=== PATIENT | female | born 1950 | race Two or more races ===

== ENCOUNTER 2024-02-07 11:03 | Outpatient (AMB) | payer MEDICARE, MEDICAID, SELFPAY ==
--- NOTE | 2024-02-07 11:01 | PD.ORTHTELE ---
Med/Allergies Allergies & Medications Allergies No Known Allergies Allergy (Verified 02/07/24 11:01) Medication Reconciliation Aspirin (Adult Low Strength Aspir) 81 tab PO QDAY PRN Heart ##30 11/14/13 [History Confirmed 02/07/24] naproxen 500 mg tablet 500 tab PO QDAY Arthritis ##60 11/14/13 [History Confirmed 02/07/24] amlodipine 5 mg tablet 5 mg PO QDAY 01/19/24 [History Confirmed 02/07/24] hydrochlorothiazide 50 mg tablet 50 mg PO QDAY 01/19/24 [History Confirmed 02/07/24] losartan 50 mg tablet 50 mg PO QDAY 01/19/24 [History Confirmed 02/07/24] Subjective Visit Visit for: follow up visit and x-rays Immunization / Flu Flu Vaccine in the Last 12 Months: No Flu Vaccine Exclusion Criteria: No Exclusion Criteria History of Present Illness Chief complaint: LEFT KNEE PAIN Date of injury / onset of symptoms: 15 YRS Date of 1st surgery (if applicable): 08/[address] ASHBY Patient is a pleasant 73-year-old female who presents today for evaluation of her left knee. She had a right total knee replacement a year ago in September. She reports the right knee has improved significantly. She has significant left knee pain. She has had multiple injections in [place]. She is also taking naproxen currently. She reports the pain is affecting her quality life and she is looking forward to getting surgery. She has also tried PT. Knee x-rays were personally reviewed by me today. She has a [employer] right total knee replacement this is in alignment position. The left knee demonstrates complete obliteration of the medial joint space with varus deformity and osteophytes. Personal History Occupation: RETIRED Red flag PMH: none Pain Pain level (0-10): 7 Pain duration: ALL DAY Pain location: inside (medial) Pain quality: sharp and aching Pain timing: increases with activity Associated signs & symptoms: none Ambulatory data Ambulatory device: none Treatments Improvement with previous injections: No Improvement with PT: No Improvement with NSAIDS: no Review of Systems Review of Systems: All systems negative unless otherwise noted in HPI. Assessment and Plan Problem List (1) Arthritis of left knee: Status: Acute Plan: Patient is a pleasant 73-year-old female who is failed conservative treatment. She has had multiple injections and has tried anti-inflammatories with minimal relief. She is also tried physical therapy. We thus discussed total knee replacement as a reasonable option. We discussed the risk and benefits of surgery in great detail today and she would like to proceed with surgery. The nature and purpose of the total knee replacement, alternative method(s) of treatment, the material risks involved, and the possibility of complications were fully explained to the patient. The patient does NOT have any of the following contraindications to TKA: - Active infection of the knee joint, OR - Active systemic bacteremia, OR - Active skin infection or open wound at surgical site, OR - Neuropathic arthritis, OR - Severe, rapidly progressive neurological disease, OR - Severe medical condition that makes risks of surgery outweigh the potential benefit The patient was told the most common risks and complications associated with a total knee replacement include, but are not limited to: blood clots in the leg, fatal pulmonary embolism, dislocation of the prosthesis, intraoperative and postoperative fractures of the femur or tibia, infection, failure of the prosthesis or grafting materials, complications from anesthesia, reactions to blood transfusions, postoperative leg length inequality, instability of the knee replacement, nerve damage or injury, vascular injury, delayed wound healing, infection, other injury or even . In addition, there are risks associated with anesthesia given during this operation. Also, the patient was told that after undergoing a total knee replacement there may still be persistent pain or disability. The patient was informed that the success of this operation in part depends upon the mechanical devices which are going to be implanted and that these devices can fail or malfunction, and may need to be repaired or replaced and there are no guarantees as to the longevity of this device or its parts and that it or its parts could fail prematurely. The patient was also notified that during the course of surgery, there may be a need to use bone graft from donors, and that any bone graft used will be carefully screened for communicable diseases, including AIDS, hepatitis, Chuy-Creutzfeldt, or other diseases, but despite the screening procedures, there is a small chance that they could contract one of these diseases. Finally, the patient was asked to follow completely and fully with all advice and recommended treatments, and that recovery and ultimate outcome are affected by their compliance with recommended treatment. We discussed the risks, benefits and treatment alternatives, and the patient is interested in proceeding with surgery. We will try to set this up as expeditiously as possible. Advanced Care Planning Discussion Advance care planning discussed with:: patient Office Procedures GNS Level of Care Nursing/Assessment Patient Status: Established Patient Nursing Assessment/Reassesment: Medication Reconciliation, Update PMH in EMR and Vital Signs Coordination of Care: Complex Care and Chronic Disease 1-5, Education Complex Pt/Fam, Consent,records obtained, informed consent, 1 Ins Authorization, Results/Orders obtained and Staff clarify orders Special Needs: Language special needs Established Patient Charge Established Patient Point Assignment: 110 Telehealth Telemed Phone/Video with patient at home & Dr,PA,NAVIGATION OFFICER: Yes
== END 2024-02-07 11:09 | disposition home or self-care (01) ==
LOC: HODSRG 11:03
PROVIDERS: PCP Physician Assistant; Referring Provider Physician Assistant; Supervising Provider Orthopaedic Surgery Adult Reconstructive Orthopaedic Surgery; Visit Provider Orthopaedic Surgery Adult Reconstructive Orthopaedic Surgery
DX: M17.12 Unilateral primary osteoarthritis, left knee (principal); Z96.651 Presence of right artificial knee joint
CPT/HCPCS: 99212; G0463

== ENCOUNTER 2024-03-22 10:28 | Outpatient (AMB) | payer MEDICARE, MEDICAID, SELFPAY ==
--- NOTE | 2024-03-22 11:11 | RHCORTHONT_ITS ---
Vital signs 03/22/24 11:12 Height 1.57 m Height Method Stated Weight 89.443 kg Weight Measurement Method Standing Scale BMI 36.3 BP 178/92 H Blood Pressure Source Automatic Cuff Blood Pressure Location Left Upper Arm Position Sitting Respiration 19 Pulse 69 Pulse Source Monitor Temp 97.6 F Temp Source Temporal Artery Scan Pulse Oximetry (%) 95 Oxygen Delivery Method Room Air Med/Allergies Allergies & Medications Allergies No Known Allergies Allergy (Verified 03/22/24 11:13) Medication Reconciliation Aspirin (Adult Low Strength Aspir) 81 tab PO QDAY PRN Heart ##30 11/14/13 [History Confirmed 03/22/24] naproxen 500 mg tablet 500 tab PO QDAY Arthritis ##60 11/14/13 [History Confirmed 03/22/24] amlodipine 5 mg tablet 5 mg PO QDAY 01/19/24 [History Confirmed 03/22/24] hydrochlorothiazide 50 mg tablet 50 mg PO QDAY 01/19/24 [History Confirmed 03/22/24] losartan 50 mg tablet 50 mg PO QDAY 01/19/24 [History Confirmed 03/22/24] Exam Exam Patient is in no acute distress and is cooperative with the examination today. Breathing is nonlabored. Patient has a normal mood and affect. Bilateral extremities were evaluated and demonstrates sensation intact to light touch. Palpable pedal pulses are present. No significant edema is present. Bilateral hips were examined. The patient has no pain with log roll of the hips. Internal rotation to 30 degrees and external rotation to 30 degrees is painless. Negative FADIR. Right knee was examined today. The right knee is in reasonable alignment. Range of motion from 0-120 degrees. Knee is stable to varus and valgus as well as AP translation with <5mm. Patient has a negative McMurrays. There is no pain with patellofemoral compression and no crepitus noted. The knee is nontender to palpation. Right knee incision is clean dry and intact Left knee was examined today. The left knee is in [varus] alignment. Range of motion from [0-115] degrees. Knee is stable to varus and valgus as well as AP translation with <5mm. Patient has a [negative] McMurrays. There is [no] pain with patellofemoral compression and [no] crepitus noted. The knee is [tender] to palpation [medially]. Bilateral knee x-rays demonstrate significant left knee arthritis and a right total knee replacement. Assessment and Plan Problem List (1) Arthritis of left knee: Status: Acute Plan: Patient is a pleasant 73-year-old female who is failed conservative treatment. She has had multiple injections and has tried anti-inflammatories with minimal relief. She is also tried physical therapy. We thus discussed total knee replacement as a reasonable option. We discussed the risk and benefits of surgery in great detail today and she would like to proceed with surgery. The nature and purpose of the total knee replacement, alternative method(s) of treatment, the material risks involved, and the possibility of complications were fully explained to the patient. The patient does NOT have any of the following contraindications to TKA: - Active infection of the knee joint, OR - Active systemic bacteremia, OR - Active skin infection or open wound at surgical site, OR - Neuropathic arthritis, OR - Severe, rapidly progressive neurological disease, OR - Severe medical condition that makes risks of surgery outweigh the potential benefit The patient was told the most common risks and complications associated with a total knee replacement include, but are not limited to: blood clots in the leg, fatal pulmonary embolism, dislocation of the prosthesis, intraoperative and postoperative fractures of the femur or tibia, infection, failure of the prosthesis or grafting materials, complications from anesthesia, reactions to blood transfusions, postoperative leg length inequality, instability of the knee replacement, nerve damage or injury, vascular injury, delayed wound healing, infection, other injury or even . In addition, there are risks associated with anesthesia given during this operation. Also, the patient was told that af ter undergoing a total knee replacement there may still be persistent pain or disability. The patient was informed that the success of this operation in part depends upon the mechanical devices which are going to be implanted and that these devices can fail or malfunction, and may need to be repaired or replaced and there are no guarantees as to the longevity of this device or its parts and that it or its parts could fail prematurely. The patient was also notified that during the course of surgery, there may be a need to use bone graft from donors, and that any bone graft used will be carefully screened for communicable diseases, including AIDS, hepatitis, Chuy-Creutzfeldt, or other diseases, but despite the screening procedures, there is a small chance that they could contract one of these diseases. Finally, the patient was asked to follow completely and fully with all advice and recommended treatments, and that recovery and ultimate outcome are affected by their compliance with recommended treatment. We discussed the risks, benefits and treatment alternatives, and the patient is interested in proceeding with surgery. We will try to set this up as expeditiously as possible. Advanced Care Planning Discussion Advance care planning discussed with:: patient Office Procedures GNS Level of Care Nursing/Assessment Patient Status: Established Patient Nursing Assessment/Reassesment: Medication Reconciliation, Update PMH in EMR and Vital Signs Coordination of Care: Complex Care and Chronic Disease 1-5, Education Complex Pt/Fam, Consent,records obtained, informed consent, 1 Ins Authorization, Results/Orders obtained and Staff clarify orders Special Needs: Language special needs Established Patient Charge Established Patient Point Assignment: 110 Established Patient Point Charge: EP Level 3 (80-115) MA Intake Visit Data Collection New Patient or Established: Established Patient (seen at [facility] within 3 years) Reason for Visit:: PRE OP L TKA Seen by Clinical Staff ONLY (RN/MA): No Boat Hoist Operator Required: Yes PCP or OBGYN visit in last 3 months: Yes Hx Now: No Do You Feel Safe at Home: Yes Authorities Contacted: N/A Questionairres Past Medical History Past Medical History Have you ever been diagnosed with any of the following: Cardiology Problems Hypertension: Yes Respiratory Problems Smoking: No Smoking Exposure: No Subjective Visit Visit for: follow up visit and knee (LEFT) Immunization / Flu Flu Vaccine in the Last 12 Months: No Flu Vaccine Exclusion Criteria: No Exclusion Criteria History of Present Illness Chief complaint: Bilateral knee pain worse on the left Jessica is here for her preop visit. She is scheduled for a total knee replacement in 2 weeks. We answered all her questions today Pain Pain level (0-10): 8 Pain duration: ON AND OFF Pain location: inside (medial), outside (lateral), anterior and posterior Pain quality: sharp, dull and aching Pain timing: night, increases with activity and stairs Associated signs & symptoms: weakness Ambulatory data Ambulatory device: cane Treatments Improvement with previous injections: No Improvement with PT: No Improvement with NSAIDS: no Review of Systems Review of Systems: All systems negative unless otherwise noted in HPI.
[2024-03-22 11:12] VITALS: BP 178/92; PULSE 69; RESP 19; TEMP 36.4; O2SAT 95; BMI 36.3
== END 2024-03-22 11:33 | disposition home or self-care (01) ==
LOC: HODSRG 10:28
PROVIDERS: PCP Physician Assistant; Referring Provider Physician Assistant; Supervising Provider Orthopaedic Surgery Adult Reconstructive Orthopaedic Surgery; Visit Provider Orthopaedic Surgery Adult Reconstructive Orthopaedic Surgery
DX: M17.12 Unilateral primary osteoarthritis, left knee (principal)
CPT/HCPCS: 99213; G0463

== ENCOUNTER → 2024-03-22 | Outpatient (CLI) | payer MEDICARE, MEDICAID, SELFPAY ==
--- NOTE | 2024-03-22 12:00 | XR_ITS ---
Examination: CT left lower extremity, without contrast. 2-D sagittal reconstructions. 2-D coronal reconstructions. 3-D reconstructions. Date and time of exam:March 22, 2024 1111 hours INDICATIONS: Left knee pain 15 years CTDI: vol (mGy):13.5 DLP: (mGycm):972 Technique: Multiple 1.25 mm axial sections of the left lower extremity without intravenous contrast have been obtained. 2-D sagittal and coronal reconstructions have been obtained. 3-D reconstructions have been obtained. Low dose protocols were performed. One or more of the following dose reduction techniques were used; automated exposure control, adjustment of the mA and/or KV according to patient size, use of iterative reconstruction technique. Findings: Moderate osteopenia Mild narrowing left hip joint No left hip fracture or dislocation Moderate to advanced left knee tricompartment osteoarthritis, most severe narrowing involving the medial joint space with subarticular sclerosis and osteophyte formation No fracture No patellar dislocation IMPRESSION: Moderate to advanced left knee tricompartment osteoarthritis, most severe medial joint space
== END | disposition home or self-care (01) ==
LOC: SCAT 12:08 → CCTX 12:43
PROVIDERS: PCP Family Medicine; Referring Provider Orthopaedic Surgery Adult Reconstructive Orthopaedic Surgery; Visit Provider Orthopaedic Surgery Adult Reconstructive Orthopaedic Surgery
DX: M17.12 Unilateral primary osteoarthritis, left knee (principal)
CPT/HCPCS: 73700

== ENCOUNTER 2024-04-11 05:45 | Day surgery (SDC) | payer MEDICARE, MEDICAID, SELFPAY ==
[2024-04-09 09:14] VITALS: BMI 38.2
[2024-04-09 09:19] VITALS: BMI 38.2
--- NOTE | 2024-04-09 09:29 | EKG_ITS ---
[facility] Test Date: 2024-04-09 Pat Name: TONI ALCAZAR Department: Room: - Gender: Female Strategic Advisor: RTSJC : 1950 Requested By: Jordan Reyes Order Number: [id number] Reading MD: Jordan Reyes Measurements Intervals [place] Rate: 65 P: 62 TN: 154 QRS: -36 QRSD: 92 T: 60 QT: 409 QTc: 425 Interpretive Statements SINUS RHYTHM MARKED LEFT AXIS DEVIATION SEPTAL MYOCARDIAL INFARCTION , OF INDETERMINATE AGE No previous ECG available for comparison /[id number]/[email or web address]/[id number]
[2024-04-09 11:32] LABS: Basophils % (Auto) 0 % (0-2.5); Eosinophils # (Auto) 0.2 Thou/mm3 (0.0-0.5); Eosinophils % (Auto) 2 % (0-10); Hematocrit 45.2 % (36.0-46.0); Hemoglobin 14.5 g/dL (12.0-16.0); Immature Granulocytes % (Auto) 0 % (0-0); Immature Granulocytes Auto 0.02 Thou/mm3 (0.00-0.00); Lymphocytes % (Auto) 26 % (10-50); Mean Corpuscular HGB Conc 32.1 g/dl (31.0-37.0); Mean Corpuscular Hemoglobin 29.5 pg (25.0-35.0); Mean Corpuscular Volume 92 fL (80-100); Monocytes # (Auto) 0.6 Thou/mm3 (0.0-0.8); Monocytes % (Auto) 8 % (0-12); Neutrophils % (Auto) 63 % (37-80); Nucleated Red Blood Cell % 0 /100 WBC (0); Platelet Count 217 Thou/mm3 (140-440); RDW Standard Deviation 44.2 fL (36.4-46.3); Red Blood Count 4.91 Miln/mm3 (4.00-5.20); White Blood Count 7.9 Thou/mm3 (3.6-11.0)
[2024-04-09 11:47] LABS: Partial Thromboplastin Time 27.6 Seconds (22.0-36.0); Prothrombin Time 10.9 Seconds (9.0-12.2)
[2024-04-09 11:52] LABS: Alanine Aminotransferase 23 U/L (10-49); Albumin, Serum 4.7 gm/dL (3.4-4.8); Albumin/Globulin Ratio 1.7 (1.2-2.2); Alkaline Phosphatase 119 U/L (46-116); Anion Gap 10 (7-16); Aspartate Amino Transferase 26 U/L (0-34); BUN/Creatinine Ratio 22 Ratio (12-20); Bilirubin,Total 0.5 mg/dL (0.3-1.2); Blood Urea Nitrogen 26 mg/dL (9-23); Calcium 9.9 mg/dL (8.3-10.6); Calcium (Corrected) 9.9 mg/dL (8.5-10.1); Carbon Dioxide 28.9 mMol/L (20.0-31.0); Chloride 105 mMol/L (98-107); Creatinine (Component) 1.2 mg/dL (0.6-1.3); Estimated Creatinine Clearance 42.7 mL/min (>60); Globulin 2.7 gm/dL (2.3-3.5); Glucose 105 mg/dL (74-106); Osmolality,Calculated 291 (275-295); Potassium 3.6 mMol/L (3.4-5.1); Sodium 144 mMol/L (136-145); Total Protein 7.4 gm/dL (5.7-8.2); eGFR 48 See Note
[2024-04-11] VITALS (10 sets, daily range): BP systolic 107–129; BP diastolic 64–86; PULSE 66–87; RESP 12–19; TEMP 36.3–36.4; O2SAT 95–100; BMI 38.7; BMI 13.0
[2024-04-11] MEDS: ACETAMINOPHEN 325 MG TABLET 650 MG PO (06:25)
[2024-04-11] MEDS: PREGABALIN 75 MG CAPSULE PO (06:25)
[2024-04-11] MEDS: MELOXICAM 7.5 MG TABLET PO (06:25)
[2024-04-11] MEDS: RINGERS LACTATED 1000 ML 1,000 ML 20 ML IV (06:26)
--- NOTE | 2024-04-11 09:26 | SUR.PHASEI ---
pt received from OR in recovery bay 1. pt awake and alert, breathing unlabored on room air. v/s stable. pt dressing to left lower extremity cdi. report received from Dr. Reyes and Sofie PUENTE.
--- NOTE | 2024-04-11 09:38 | ESOP_ITS ---
Date of Procedure 04/11/24 Pre Op Diagnosis left knee osteoarthritis Post Op Diagnosis left knee osteoarthritis Procedure left total knee replacement robotic assisted Findings full thickness cartilage loss and ostoephytes Procedure Description Indication: The patient is a 74 year old who has a long history of left knee pain. X-rays show degenerative arthritis involving the knee. Over the past several years the patient has had increasing pain, progressive limitation in function. He has failed conservative measures including activity modification, physical therapy, injections, anti-inflammatories, and assistive devices. After a lengthy discussion of the risks and benefits, the patient presents now for total knee replacement. The nature and purpose of the total knee replacement, alternative method(s) of treatment, the material risks involved, and the possibility of complications were fully explained to the patient. The patient was told the most common risks and complications associated with a total knee replacement include, but are not limited to blood clots in the leg, fatal pulmonary embolism, dislocation of the prosthesis, intraoperative and postoperative fractures of the femur or tibia, infection, failure of the prosthesis or grafting materials, complications from anesthesia, reactions to blood transfusions, postoperative leg length inequality, instability of the knee replacement, nerve damage or injury, vascular injury, delayed wound healing, infections, other injury or even . In addition, there are risks associated with anesthesia given during this operation, temporary or permanent numbness on the skin lateral to the incision can be a complication unique to total knee surgery, and kneeling can be painful after knee replacement surgery. Also, the patient was told that after undergoing a total knee replacement there may still be pain or disability. We discussed with the patient that we will be using a robot-assisted technology. We discussed that there is a possibility of converting to manual instrumentation. The patient was informed that the success of this operation in part depends upon the mechanical devices which are going to be implanted and that these devices can fail or malfunction, and may need to be repaired or replaced and there are no guarantees as to the longevity of this device or its part and that it or its parts could fail prematurely. Finally, the patient was asked to follow completely and fully with all advice and recommended treatments, and that recovery and ultimate outcome are affected by their compliance with recommended treatment. Surgical technique: Patient was marked and consented in the pre-operative area. The patient was brought to the operating room and placed on the operating table in a supine position. Prior to positioning, a timeout procedure was performed between the surgeon, the anesthesiologist, and the nursing staff where the patient and the operative side were identified and confirmed. After adequate general anesthetic was obtained, the left lower extremity was prepped and draped in the usual sterile fashion. A weight based dose of Cefazolin were administered within 1 hour prior to incision. The robot was preregistered and calirated before the incision. The extremity was exsanguinated with an esmarch badge and tourniquet inflated to 250mmHg. A midline incision was made. A median parapatellar arthrotomy was made. The patella was subluxed laterally. A medial release was performed to expose the medial tibia. His femoral and tibial pins were placed through an intra incisional manner for both cases. Every effort was made to ensure that the distalmost aspect of the pin was hung in the second cortex. The arrays were then tightened several times to ensure that it was fixed for the remainder of the case. Both femoral and tibial checkpoints were then placed. We then went through the registration process of the bone. We then assessed the knee deformity and attempted to correct it. We also used the robot to aid in judging laxity in both extension and flexion. Final based on laxity and alignment we changed the preoperative assessment to obtain proper proper implant positioning and to correct deformity. Attention was then placed to the tibia. We made a tibial cut using the robot ensuring that both the MCL and the patella tendon were protected with retractors. We then went to the femur and made the posterior cut followed by the anterior cut and the anterior chamfer. The bone was then removed and we made a distal femur cut and a posterior chamfer cut. We verified all cuts. A trial reduction was performed with a size 4 femoral component and a size 3 keeled tibial component. The patella tracked centrally, and no lateral retinacular release was necessary. The trial implants were removed. The arrays, pins, and checkpoints were all removed. We performed a verification that all pins were removed. The cut bone surfaces were lavaged. A size 4 left femoral component, a size 3 keeled tibial component were impacted into position. The knee was felt to be well balanced in the sagittal and coronal plane. The final 3x10 mm cruciate- substituting articular insert was impacted into the tibial tray. The knee was brought out to full extension, flexed up to 120 degrees. It was stable to varus and valgus stress and appropriately balanced in flexion and extension. The wounds were copiously irrigated following deflation of tourniquet. The medial retinaculum was reapproximated with #1 vicryl and quill. The subcutaneous tissues were closed with 0 and 2-0 interrupted Vicryl. The skin was closed with 3-0 Monofilament V loc suture. A sterile dressing was applied. The patient was transferred to a bed and brought to recovery in stable condition. The patient tolerated the procedure well. There were no intraoperative complications. Sponge and needle counts were correct times 2. As the attending surgeon, Marika chi I was present and performed the entire operation. Grafts/Implants Size 4 CR Femur Size 3 Tibia 10mm poly CS Anesthesia spinal Implants travis Pathology / specimen None Pathology comment: none Estimated Blood Loss 150 Condition Stable Surgeon Kali Quintero MD Surgical Staff Operation Date: 04/11/24 07:30 Case Staff Anesthesiologist: Jordan Reyes RNtechnical sales support specialist: Huong Zayas
--- NOTE | 2024-04-11 09:43 | XR_ITS ---
Examination: Left knee 2 views Technique one AP lateral left knee 2 views Exam date and time: April 11, 2024 1044 hours INDICATIONS: Postop knee surgery today. FINDINGS: Prominent osteopenia Total left knee arthroplasty. Satisfactory alignment No fracture IMPRESSION: Total left knee arthroplasty with satisfactory alignment
--- NOTE | 2024-04-11 09:51 | SUR.PHASEI ---
pt able to tolerate oral fluids without difficulty swallowing or nausea/vomiting.
--- NOTE | 2024-04-11 11:25 | SUR.PHASEII ---
pt awake and alert, breathing unlabored on room air. v/s stable. pt dressing to left lower extremity cdi. pt cleared by physical therapist Bridget, pt able to ambulate to wheelchair with steady gait. d/c instructions given with and son in room using echocardiologist Bryn Rice62, all questions answered. pt d/c via wheelchair with all belongings.
--- NOTE | 2024-04-17 13:32 | ESPR_ITS ---
Documentation for date of: 04/17/24 POST ANESTHESIA NOTE: Patient had spinal anesthesia and L adductor block and MAC for L TKA on 04/11/24. I just called and spoke with her on the phone via dielectric embossing machine operator and she denied any problems from anesthesia. Jordan Reyes MD Anesthesia Progress Note Progress Note Most recent Vital Signs: Last Vital Signs Temp 97.4 F 04/11/24 10:55 Pulse 86 04/11/24 10:55 Resp 15 04/11/24 10:55 BP 128/78 04/11/24 10:55 Pulse Ox 95 04/11/24 10:55
== END 2024-04-11 11:25 | disposition home or self-care (01) ==
PROVIDERS: Anesthesiology; PCP Family Medicine; Referring Provider Orthopaedic Surgery Adult Reconstructive Orthopaedic Surgery; Visit Provider Orthopaedic Surgery Adult Reconstructive Orthopaedic Surgery
PROC: (CPT 27447; principal; 2024-04-11 07:30)
DX: M17.12 Unilateral primary osteoarthritis, left knee (principal); M25.762 Osteophyte, left knee; Z01.810 Encounter for preprocedural cardiovascular examination
CPT/HCPCS: 27447; 20985; 36415; 73560; 80053; 85025; 85610; 85730; 93005; 97162; A4217; C1713; C1776; J0171; J0690; J1100; J1885; J2250; J2371; J2704; J2795; J3010; J3490; J7030; J7120; P9045; A4648; A4649; A9270

== ENCOUNTER 2024-04-27 09:11 | Outpatient (AMB) | payer MEDICARE, MEDICAID, SELFPAY ==
--- NOTE | 2024-04-27 09:37 | PD.ORTHCLVIS ---
Vital signs 04/27/24 09:39 Height 1.52 m Height Method Stated Weight 88.961 kg Weight Measurement Method Standing Scale BMI 38.5 BP 149/82 H Blood Pressure Source Automatic Cuff Blood Pressure Location Left Upper Arm Position Sitting Respiration 18 Pulse 69 Pulse Source Monitor Temp 97.8 F Temp Source Temporal Artery Scan Pulse Oximetry (%) 96 Oxygen Delivery Method Room Air Med/Allergies Allergies & Medications Allergies No Known Allergies Allergy (Verified 04/27/24 09:40) Medication Reconciliation naproxen 500 mg tablet 500 tab PO Q12H PRN Arthritis ##60 11/14/13 [History Confirmed 04/27/24] amlodipine 5 mg tablet 5 mg PO QDAY 01/19/24 [History Confirmed 04/27/24] hydrochlorothiazide 50 mg tablet 50 mg PO QDAY 01/19/24 [History Confirmed 04/27/24] losartan 100 mg tablet 100 mg PO QDAY 04/09/24 [History Confirmed 04/27/24] lovastatin 20 mg tablet 20 mg PO QPM 04/09/24 [History Confirmed 04/27/24] acetaminophen 500 mg tablet (Acetaminophen Extra Strength) 1,000 mg (2 x 500 mg) PO Q6H PRN pain #90 tabs 04/11/24 [Rx Confirmed 04/27/24] aspirin 81 mg tablet,delayed release 81 mg PO BID #60 tabs 04/11/24 [Rx Confirmed 04/27/24] doxycycline hyclate 100 mg tablet 100 mg PO BID #14 tabs 04/11/24 [Rx Confirmed 04/27/24] gabapentin 300 mg capsule 300 mg PO .qhs #30 caps 04/11/24 [Rx Confirmed 04/27/24] oxycodone 5 mg tablet 5 mg PO Q6H PRN pain #28 tabs 04/11/24 [Rx Confirmed 04/27/24] sennosides 8.6 mg-docusate sodium 50 mg tablet (Senna-S) 1 tab-cap PO QDAY #30 tabs 04/11/24 [Rx Confirmed 04/27/24] acetaminophen 500 mg tablet (Acetaminophen Extra Strength) 1,000 mg (2 x 500 mg) PO Q6H PRN pain #90 tabs 04/26/24 [Rx Confirmed 04/27/24] oxycodone 5 mg tablet 5 mg PO Q6H PRN pain #28 tabs 04/26/24 [Rx Confirmed 04/27/24] Exam Exam Patient is in no acute distress and is cooperative with the examination today. Breathing is nonlabored. Patient has a normal mood and affect. Bilateral extremities were evaluated and demonstrates sensation intact to light touch. Palpable pedal pulses are present. No significant edema is present. Bilateral hips were examined. The patient has no pain with log roll of the hips. Internal rotation to 30 degrees and external rotation to 30 degrees is painless. Negative FADIR. Right knee incision is clean dry and intact Assessment and Plan Problem List (1) Arthritis of left knee: Status: Acute Plan: Patient is a pleasant 73-year-old female Status post right total knee replacement. She is doing well and has minimal pain We will see the patient back in approximately 4 weeks for routine follow-up Advanced Care Planning Discussion Advance care planning discussed with:: patient Office Procedures GNS Level of Care Nursing/Assessment Patient Status: Established Patient Nursing Assessment/Reassesment: Medication Reconciliation, Update PMH in EMR and Vital Signs Coordination of Care: Complex Care and Chronic Disease 1-5, Education Complex Pt/Fam, Consent,records obtained, informed consent, Results/Orders obtained and Staff clarify orders Special Needs: Language special needs Established Patient Charge Established Patient Point Assignment: 95 Established Patient Point Charge: EP Level 3 (80-115) MA Intake Visit Data Collection New Patient or Established: Established Patient (seen at [facility] within 3 years) Reason for Visit:: F/U POST TKA Seen by Clinical Staff ONLY (RN/MA): No City Dispatcher Required: No PCP or OBGYN visit in last 3 months: Yes Hx Now: No Do You Feel Safe at Home: Yes Authorities Contacted: N/A Questionairres Past Medical History Past Medical History Have you ever been diagnosed with any of the following: Neurological Problems Seizures: No Cardiology Problems Hypercholesterolemia: Yes Congestive Heart Failure: No Edema: Yes (knees down at times) Hypertension: Yes Varicose Veins: Yes Respiratory Problems Chronic Obstructive Pulmonary Disease (COPD): No Smoking: No Smoking Exposure: No Stomache/Intestinal Problems Obesity: Yes Genital/Urinary Problems Renal Disease: No Reproductive Problems Previous Pregnancies: Yes Musculoskeletal Problems Arthritis: Yes Endocrine Problems Diabetes Mellitus Type 1: No Diabetes Mellitus Type 2: No Other Problems Hospitalization: No Shingles: No Blood Transfusions: No Blood Transfusion Reaction: No Anesthesia Reactions: No Measles: Yes Cancer: No Subjective Visit Visit for: follow up visit and knee Immunization / Flu Flu Vaccine in the Last 12 Months: No Flu Vaccine Exclusion Criteria: No Exclusion Criteria History of Present Illness Chief complaint: right total knee replacement Patient is a 74-year-old female who is 2 weeks status post right total knee replacement. She is doing well. There is minimal pain Pain Pain level (0-10): 5 Pain duration: COMES AND GOES Pain location: anterior Pain quality: aching Pain timing: increases with activity Associated signs & symptoms: numbness Ambulatory data Ambulatory device: walker Treatments Improvement with previous injections: No Improvement with PT: No Improvement with NSAIDS: no Review of Systems Review of Systems: All systems negative unless otherwise noted in HPI.
[2024-04-27 09:39] VITALS: BP 149/82; PULSE 69; RESP 18; TEMP 36.6; O2SAT 96; BMI 38.5
== END 2024-04-27 09:42 | disposition home or self-care (01) ==
LOC: HODSRG 09:11
PROVIDERS: PCP Family Medicine; Referring Provider Family Medicine; Supervising Provider Orthopaedic Surgery Adult Reconstructive Orthopaedic Surgery; Visit Provider Orthopaedic Surgery Adult Reconstructive Orthopaedic Surgery
DX: M17.12 Unilateral primary osteoarthritis, left knee (principal); Z96.651 Presence of right artificial knee joint; I10 Essential (primary) hypertension; E78.00 Pure hypercholesterolemia, unspecified
CPT/HCPCS: 99213; G0463

== ENCOUNTER → 2024-05-24 | Outpatient (CLI) | payer MEDICARE, MEDICAID, SELFPAY ==
--- NOTE | 2024-05-24 15:08 | XR_ITS ---
Examination: Bilateral AP knees single view AP lateral axial left knee 3 views TECHNIQUE: Bilateral AP knees standing single view Standing AP lateral axial left knee 3 views total 4 views Exam date and time: May 24, 2024 1512 hours INDICATIONS: Knee pain months. FINDINGS: Moderate osteopenia Bilateral total knee arthroplasties Satisfactory alignment No loosening of the prosthetic components No left patellar dislocation IMPRESSION: Bilateral total knee arthroplasties with satisfactory alignment
== END | disposition home or self-care (01) ==
LOC: CDIM 14:49
PROVIDERS: Referring Provider Orthopaedic Surgery Adult Reconstructive Orthopaedic Surgery; Visit Provider Orthopaedic Surgery Adult Reconstructive Orthopaedic Surgery
DX: M25.569 Pain in unspecified knee (principal); Z96.653 Presence of artificial knee joint, bilateral
CPT/HCPCS: 73564

== ENCOUNTER 2024-05-29 10:03 | Outpatient (AMB) | payer MEDICARE, MEDICAID, SELFPAY ==
[2024-05-29 10:21] VITALS: BP 157/83; PULSE 59; RESP 19; TEMP 36.4; O2SAT 98; BMI 38.4
--- NOTE | 2024-05-29 10:21 | ORTHONT_ITS ---
Vital signs 05/29/24 10:21 Height 1.52 m Height Method Stated Weight 88.706 kg Weight Measurement Method Standing Scale BMI 38.4 BP 157/83 H Blood Pressure Source Automatic Cuff Blood Pressure Location Left Upper Arm Position Sitting Respiration 19 Pulse 59 L Pulse Source Monitor Temp 97.5 F Temp Source Temporal Artery Scan Pulse Oximetry (%) 98 Oxygen Delivery Method Room Air Med/Allergies Allergies & Medications Allergies No Known Allergies Allergy (Verified 05/29/24 10:22) Medication Reconciliation naproxen 500 mg tablet 500 tab PO Q12H PRN Arthritis ##60 11/14/13 [History Conf irmed 05/29/24] amlodipine 5 mg tablet 5 mg PO QDAY 01/19/24 [History Confirmed 05/29/24] hydrochlorothiazide 50 mg tablet 50 mg PO QDAY 01/19/24 [History Confirmed 05/29/24] losartan 100 mg tablet 100 mg PO QDAY 04/09/24 [History Confirmed 05/29/24] lovastatin 20 mg tablet 20 mg PO QPM 04/09/24 [History Confirmed 05/29/24] acetaminophen 500 mg tablet (Acetaminophen Extra Strength) 1,000 mg (2 x 500 mg) PO Q6H PRN pain #90 tabs 04/11/24 [Rx Confirmed 05/29/24] aspirin 81 mg tablet,delayed release 81 mg PO BID #60 tabs 04/11/24 [Rx Confirmed 05/29/24] doxycycline hyclate 100 mg tablet 100 mg PO BID #14 tabs 04/11/24 [Rx Confirmed 05/29/24] gabapentin 300 mg capsule 300 mg PO .qhs #30 caps 04/11/24 [Rx Confirmed 05/29/24] oxycodone 5 mg tablet 5 mg PO Q6H PRN pain #28 tabs 04/11/24 [Rx Confirmed 05/29/24] sennosides 8.6 mg-docusate sodium 50 mg tablet (Senna-S) 1 tab-cap PO QDAY #30 tabs 04/11/24 [Rx Confirmed 05/29/24] acetaminophen 500 mg tablet (Acetaminophen Extra Strength) 1,000 mg (2 x 500 mg) PO Q6H PRN pain #90 tabs 04/26/24 [Rx Confirmed 05/29/24] oxycodone 5 mg tablet 5 mg PO Q6H PRN pain #28 tabs 04/26/24 [Rx Confirmed 05/29/24] Exam Exam Patient is in no acute distress and is cooperative with the examination today. Breathing is nonlabored. Patient has a normal mood and affect. Bilateral extremities were evaluated and demonstrates sensation intact to light touch. Palpable pedal pulses are present. No significant edema is present. Bilateral hips were examined. The patient has no pain with log roll of the hips. Internal rotation to 30 degrees and external rotation to 30 degrees is painless. Negative FADIR. left knee incision is clean dry and intact Assessment and Plan Problem List (1) Arthritis of left knee: Status: Acute Plan: Patient is a pleasant 73-year-old female Status post right total knee replacement. She is doing well and has minimal pain We will see the patient back in approximately 10 weeks for routine follow-up Advanced Care Planning Discussion Advance care planning discussed with:: patient Office Procedures GNS Level of Care Nursing/Assessment Patient Status: Established Patient Nursing Assessment/Reassesment: Medication Reconciliation, Update PMH in EMR and Vital Signs Coordination of Care: Complex Care and Chronic Disease 1-5, Education Complex Pt/Fam, Consent,records obtained, informed consent, Results/Orders obtained and Staff clarify orders Special Needs: Language special needs Established Patient Charge Established Patient Point Assignment: 95 Established Patient Point Charge: EP Level 3 (80-115) MA Intake Visit Data Collection New Patient or Established: Established Patient (seen at [facility] within 3 years) Reason for Visit:: F/U TKA Seen by Clinical Staff ONLY (RN/MA): No 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 PCP or OBGYN visit in last 3 months: Yes Hx Now: No Do You Feel Safe at Home: Yes Authorities Contacted: N/A Questionairres Past Medical History Past Medical History Have you ever been diagnosed with any of the following: Neurological Problems Seizures: No Cardiology Problems Hypercholesterolemia: Yes Congestive Heart Failure: No Edema: Yes (knees down at times) Hypertension: Yes Varicose Veins: Yes Respiratory Problems Chronic Obstructive Pulmonary Disease (COPD): No Smoking: No Smoking Exposure: No Stomache/Intestinal Problems Obesity: Yes Genital/Urinary Problems Renal Disease: No Reproductive Problems Previous Pregnancies: Yes Musculoskeletal Problems Arthritis: Yes Endocrine Problems Diabetes Mellitus Type 1: No Diabetes Mellitus Type 2: No Other Problems Hospitalization: No Shingles: No Blood Transfusions: No Blood Transfusion Reaction: No Anesthesia Reactions: No Measles: Yes Cancer: No Subjective Visit Visit for: follow up visit, post op #2 and knee Immunization / Flu Flu Vaccine in the Last 12 Months: No Flu Vaccine Exclusion Criteria: No Exclusion Criteria History of Present Illness Chief complaint: Left knee pain Agata is doing well status post left total knee replacement. She has minimal pain. He has minimal pain and is using no assistive device Pain Pain level (0-10): 1 Pain duration: ON AND OFF Pain location: inside (medial) and anterior Pain quality: aching Associated signs & symptoms: numbness Ambulatory data Ambulatory device: walker Treatments Improvement with previous injections: No Improvement with PT: No Improvement with NSAIDS: no Review of Systems Review of Systems: All systems negative unless otherwise noted in HPI.
== END 2024-05-29 10:31 | disposition home or self-care (01) ==
LOC: HODSRG 10:03
PROVIDERS: PCP Family Medicine; Referring Provider Family Medicine; Supervising Provider Orthopaedic Surgery Adult Reconstructive Orthopaedic Surgery; Visit Provider Orthopaedic Surgery Adult Reconstructive Orthopaedic Surgery
DX: M17.12 Unilateral primary osteoarthritis, left knee (principal); Z96.651 Presence of right artificial knee joint; I10 Essential (primary) hypertension; E78.00 Pure hypercholesterolemia, unspecified
CPT/HCPCS: 99213; G0463

== ENCOUNTER 2024-08-28 09:55 | Outpatient (AMB) | payer MEDICARE, MEDICAID, SELFPAY ==
--- NOTE | 2024-08-28 10:05 | PD.ORTHCLVIS ---
Vital signs 08/28/24 10:06 Height 1.52 m Height Method Stated Weight 87.345 kg Weight Measurement Method Standing Scale BMI 37.8 BP 143/82 H Blood Pressure Source Automatic Cuff Blood Pressure Location Left Upper Arm Position Sitting Respiration 19 Pulse 61 Pulse Source Monitor Temp 96.8 F Temp Source Temporal Artery Scan Pulse Oximetry (%) 94 L Oxygen Delivery Method Room Air Med/Allergies Allergies & Medications Allergies No Known Allergies Allergy (Verified 08/28/24 10:07) Medication Reconciliation naproxen 500 mg tablet 500 tab PO Q12H PRN Arthritis ##60 11/14/13 [History Confirmed 08/28/24] amlodipine 5 mg tablet 5 mg PO QDAY 01/19/24 [History Confirmed 08/28/24] hydrochlorothiazide 50 mg tablet 50 mg PO QDAY 01/19/24 [History Confirmed 08/28/24] losartan 100 mg tablet 100 mg PO QDAY 04/09/24 [History Confirmed 08/28/24] lovastatin 20 mg tablet 20 mg PO QPM 04/09/24 [History Confirmed 08/28/24] acetaminophen 500 mg tablet (Acetaminophen Extra Strength) 1,000 mg (2 x 500 mg) PO Q6H PRN pain #90 tabs 04/11/24 [Rx Confirmed 08/28/24] aspirin 81 mg tablet,delayed release 81 mg PO BID #60 tabs 04/11/24 [Rx Confirmed 08/28/24] doxycycline hyclate 100 mg tablet 100 mg PO BID #14 tabs 04/11/24 [Rx Confirmed 08/28/24] gabapentin 300 mg capsule 300 mg PO .qhs #30 caps 04/11/24 [Rx Confirmed 08/28/24] oxycodone 5 mg tablet 5 mg PO Q6H PRN pain #28 tabs 04/11/24 [Rx Confirmed 08/28/24] sennosides 8.6 mg-docusate sodium 50 mg tablet (Senna-S) 1 tab-cap PO QDAY #30 tabs 04/11/24 [Rx Confirmed 08/28/24] acetaminophen 500 mg tablet (Acetaminophen Extra Strength) 1,000 mg (2 x 500 mg) PO Q6H PRN pain #90 tabs 04/26/24 [Rx Confirmed 08/28/24] oxycodone 5 mg tablet 5 mg PO Q6H PRN pain #28 tabs 04/26/24 [Rx Confirmed 08/28/24] Exam Exam Patient is in no acute distress and is cooperative with the examination today. Breathing is nonlabored. Patient has a normal mood and affect. Bilateral extremities were evaluated and demonstrates sensation intact to light touch. Palpable pedal pulses are present. No significant edema is present. Bilateral hips were examined. The patient has no pain with log roll of the hips. Internal rotation to 30 degrees and external rotation to 30 degrees is painless. Negative FADIR. left knee incision is clean dry and intact Assessment and Plan Problem List (1) Arthritis of left knee: Status: Acute Plan: Patient is a pleasant 73-year-old female Status post right total knee replacement. She is doing well and has minimal pain We will see her in 6 months for routine follow-up Advanced Care Planning Discussion Advance care planning discussed with:: patient Office Procedures GNS Level of Care Nursing/Assessment Patient Status: Established Patient Nursing Assessment/Reassesment: Medication Reconciliation, Update PMH in EMR and Vital Signs Coordination of Care: Complex Care and Chronic Disease 1-5, Education Complex Pt/Fam, Consent,records obtained, informed consent, Results/Orders obtained and Staff clarify orders Special Needs: Language special needs Established Patient Charge Established Patient Point Assignment: 95 Established Patient Point Charge: EP Level 3 (80-115) MA Intake Visit Data Collection New Patient or Established: Established Patient (seen at [facility] within 3 years) Reason for Visit:: FOLLOW UP TKA 4MTH Seen by Clinical Staff ONLY (RN/MA): No 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 PCP or OBGYN visit in last 3 months: Yes Hx Now: No Do You Feel Safe at Home: Yes Authorities Contacted: N/A Questionairres Past Medical History Past Medical History Have you ever been diagnosed with any of the following: Neurological Problems Seizures: No Cardiology Problems Hypercholesterolemia: Yes Congestive Heart Failure: No Edema: Yes (knees down at times) Hypertension: Yes Varicose Veins: Yes Respiratory Problems Chronic Obstructive Pulmonary Disease (COPD): No Smoking: No Smoking Exposure: No Stomache/Intestinal Problems Obesity: Yes Genital/Urinary Problems Renal Disease: No Reproductive Problems Previous Pregnancies: Yes Musculoskeletal Problems Arthritis: Yes Endocrine Problems Diabetes Mellitus Type 1: No Diabetes Mellitus Type 2: No Other Problems Hospitalization: No Shingles: No Blood Transfusions: No Blood Transfusion Reaction: No Anesthesia Reactions: No Measles: Yes Cancer: No Surgical History Total Knee Replacement: Yes (BILATERAL) Subjective Visit Visit for: follow up visit, post op #3 and knee Immunization / Flu Flu Vaccine in the Last 12 Months: No Flu Vaccine Exclusion Criteria: No Exclusion Criteria History of Present Illness Chief complaint: Left knee pain Ruth is a pleasant 74-year-old female with left knee pain and left knee arthritis. She is doing well after her total knee replacement 4 months ago. She reports the pain is very minimal and she is very happy Pain Pain level (0-10): 5 Pain duration: ON AND OFF Pain location: anterior Pain quality: dull and aching Pain timing: night and other (specify) (SWELLING) Associated signs & symptoms: none Ambulatory data Ambulatory device: none Treatments Improvement with previous injections: No Improvement with PT: No Improvement with NSAIDS: no Review of Systems Review of Systems: All systems negative unless otherwise noted in HPI.
[2024-08-28 10:06] VITALS: BP 143/82; PULSE 61; RESP 19; TEMP 36; O2SAT 94; BMI 37.8
== END 2024-08-28 10:31 | disposition home or self-care (01) ==
LOC: HODSRG 09:55
PROVIDERS: Supervising Provider Orthopaedic Surgery Adult Reconstructive Orthopaedic Surgery; Visit Provider Orthopaedic Surgery Adult Reconstructive Orthopaedic Surgery
DX: M17.12 Unilateral primary osteoarthritis, left knee (principal); M25.562 Pain in left knee; Z96.651 Presence of right artificial knee joint; I10 Essential (primary) hypertension; E78.00 Pure hypercholesterolemia, unspecified
CPT/HCPCS: 99213; G0463

== ENCOUNTER → 2025-02-13 | Outpatient (CLI) | payer MEDICARE, MEDICAID, SELFPAY ==
--- NOTE | 2025-02-13 13:40 | XR_ITS ---
EXAMINATION: Left knee 4 views TECHNIQUE: AP oblique lateral axial left knee 4 views Date and time: February 13, 2025 1407 hours INDICATIONS: Left knee replacement 9 months ago FINDINGS: Comparison May 24, 2024 Total left knee arthroplasty. Satisfactory alignment. No fracture. No patellar dislocation. No loosening of the prosthetic components IMPRESSION: Left knee arthroplasty with satisfactory alignment
== END | disposition home or self-care (01) ==
LOC: CDIM 13:30
PROVIDERS: PCP Family Medicine; Referring Provider Orthopaedic Surgery Adult Reconstructive Orthopaedic Surgery; Visit Provider Orthopaedic Surgery Adult Reconstructive Orthopaedic Surgery
DX: M17.12 Unilateral primary osteoarthritis, left knee (principal); Z96.652 Presence of left artificial knee joint
CPT/HCPCS: 73564

== ENCOUNTER 2025-02-22 10:01 | Outpatient (AMB) | payer MEDICARE, MEDICAID, SELFPAY ==
--- NOTE | 2025-02-22 10:40 | PD.ORTHCLVIS ---
Vital signs 02/22/25 10:41 Height 1.52 m Height Method Measured Weight 87.146 kg Weight Measurement Method Standing Scale BMI 37.7 BP 115/79 Blood Pressure Source Automatic Cuff Blood Pressure Location Left Upper Arm Position Sitting Respiration 19 Pulse 64 Pulse Source Monitor Temp 97.7 F Temp Source Temporal Artery Scan Pulse Oximetry (%) 97 Oxygen Delivery Method Room Air Med/Allergies Allergies & Medications Allergies No Known Allergies Allergy (Verified 02/22/25 10:42) Medication Reconciliation naproxen 500 mg tablet 500 tab PO Q12H PRN Arthritis ##60 11/14/13 [History Confirmed 02/22/25] amlodipine 5 mg tablet 5 mg PO QDAY 01/19/24 [History Confirmed 02/22/25] hydrochlorothiazide 50 mg tablet 50 mg PO QDAY 01/19/24 [History Confirmed 02/22/25] losartan 100 mg tablet 100 mg PO QDAY 04/09/24 [History Confirmed 02/22/25] lovastatin 20 mg tablet 20 mg PO QPM 04/09/24 [History Confirmed 02/22/25] acetaminophen 500 mg tablet (Acetaminophen Extra Strength) 1,000 mg (2 x 500 mg) PO Q6H PRN pain #90 tabs 04/11/24 [Rx Confirmed 02/22/25] aspirin 81 mg tablet,delayed release 81 mg PO BID #60 tabs 04/11/24 [Rx Confirmed 02/22/25] doxycycline hyclate 100 mg tablet 100 mg PO BID #14 tabs 04/11/24 [Rx Confirmed 02/22/25] gabapentin 300 mg capsule 300 mg PO .qhs #30 caps 04/11/24 [Rx Confirmed 02/22/25] oxycodone 5 mg tablet 5 mg PO Q6H PRN pain #28 tabs 04/11/24 [Rx Confirmed 02/22/25] sennosides 8.6 mg-docusate sodium 50 mg tablet (Senna-S) 1 tab-cap PO QDAY #30 tabs 04/11/24 [Rx Confirmed 02/22/25] acetaminophen 500 mg tablet (Acetaminophen Extra Strength) 1,000 mg (2 x 500 mg) PO Q6H PRN pain #90 tabs 04/26/24 [Rx Confirmed 02/22/25] oxycodone 5 mg tablet 5 mg PO Q6H PRN pain #28 tabs 04/26/24 [Rx Confirmed 02/22/25] Exam Exam Patient is in no acute distress and is cooperative with the examination today. Breathing is nonlabored. Patient has a normal mood and affect. Bilateral extremities were evaluated and demonstrates sensation intact to light touch. Palpable pedal pulses are present. No significant edema is present. Bilateral hips were examined. The patient has no pain with log roll of the hips. Internal rotation to 30 degrees and external rotation to 30 degrees is painless. Negative FADIR. left knee incision is clean dry and intact. Knee feels stable to varus and valgus tress as well as AP translation X-rays demonstrates a cementless total knee replacement in good alignment position. Assessment and Plan Problem List (1) Arthritis of left knee: Status: Acute Plan: Patient is a 74-year-old female with a left knee pain and left knee arthritis status post total knee replacement. She is doing well and is very happy. We will see her for routine follow-up in 1 to 2 years Advanced Care Planning Discussion Advance care planning discussed with:: patient Office Procedures GNS Level of Care Nursing/Assessment Patient Status: Established Patient Nursing Assessment/Reassesment: Medication Reconciliation, Update PMH in EMR and Vital Signs Coordination of Care: Complex Care and Chronic Disease 1-5, Education Complex Pt/Fam, Consent,records obtained, informed consent, Results/Orders obtained and Staff clarify orders Special Needs: Language special needs Established Patient Charge Established Patient Point Assignment: 95 Established Patient Point Charge: EP Level 3 (80-115) MA Intake Visit Data Collection New Patient or Established: Established Patient (seen at [facility] within 3 years) Reason for Visit:: TKA FU 1 YEAR Seen by Clinical Staff ONLY (RN/MA): No 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 PCP or OBGYN visit in last 3 months: Yes Hx Now: No Do You Feel Safe at Home: Yes Authorities Contacted: N/A Questionairres Past Medical History Past Medical History Have you ever been diagnosed with any of the following: Neurological Problems Seizures: No Cardiology Problems Hypercholesterolemia: Yes Congestive Heart Failure: No Edema: Yes (knees down at times) Hypertension: Yes Varicose Veins: Yes Respiratory Problems Chronic Obstructive Pulmonary Disease (COPD): No Smoking: No Smoking Exposure: No Stomache/Intestinal Problems Obesity: Yes Genital/Urinary Problems Renal Disease: No Reproductive Problems Previous Pregnancies: Yes Musculoskeletal Problems Arthritis: Yes Endocrine Problems Diabetes Mellitus Type 1: No Diabetes Mellitus Type 2: No Other Problems Hospitalization: No Shingles: No Blood Transfusions: No Blood Transfusion Reaction: No Anesthesia Reactions: No Measles: Yes Cancer: No Surgical History Total Knee Replacement: Yes (BILATERAL) Subjective Visit Visit for: follow up visit, post op #3 and knee Immunization / Flu Flu Vaccine in the Last 12 Months: No Flu Vaccine Exclusion Criteria: No Exclusion Criteria History of Present Illness Chief complaint: Left knee pain Ruth is a pleasant 74-year-old female with left knee pain and left knee arthritis. She is doing well after her total knee replacement 10 months ago. She reports the pain is very minimal and she is very happy Pain Pain level (0-10): 5 Pain duration: ON AND OFF Pain location: anterior Pain quality: dull and aching Pain timing: night and other (specify) (SWELLING) Associated signs & symptoms: none Ambulatory data Ambulatory device: none Treatments Improvement with previous injections: No Improvement with PT: No Improvement with NSAIDS: no Review of Systems Review of Systems: All systems negative unless otherwise noted in HPI.
[2025-02-22 10:41] VITALS: BP 115/79; PULSE 64; RESP 19; TEMP 36.5; O2SAT 97; BMI 37.7
== END 2025-02-22 10:53 | disposition home or self-care (01) ==
LOC: HODSRG 10:01
PROVIDERS: Supervising Provider Orthopaedic Surgery Adult Reconstructive Orthopaedic Surgery; Visit Provider Orthopaedic Surgery Adult Reconstructive Orthopaedic Surgery
DX: Z47.1 Aftercare following joint replacement surgery (principal); Z96.652 Presence of left artificial knee joint; M25.562 Pain in left knee; I10 Essential (primary) hypertension; E66.9 Obesity, unspecified; Z68.37 Body mass index [BMI] 37.0-37.9, adult
CPT/HCPCS: 99213; G0463